=== PATIENT | male | born 1945 | race Caucasian/White ===

== ENCOUNTER 2018-12-05 11:22 | Emergency (ER) | payer MEDICARE, BC ==
[2018-12-05] MEDS ORDERED: Cyclobenzaprine 10 MG Tab PO ONE (11:54)
[2018-12-05] MEDS ORDERED: Lidocaine 5% 700 MG Patch TOP SCH (12:00)
--- NOTE | 2018-12-05 12:04 | EDM.PDOC ---
ED HPI GENERAL MEDICAL PROBLEM - General Chief Complaint: Lower Extremity Injury/Pain Stated Complaint: PULLED HAMSTRING/RT SIDE Time Seen by Provider: 12/05/18 11:45 Source of Information: Reports: Patient History Limitations: Reports: No Limitations - History of Present Illness INITIAL COMMENTS - FREE TEXT/NARRATIVE: Kishan is a 73 year old male, presents to the ED today with c/o right posterior thigh pain. Patient was water skiing, trying to get up on his skis, when he fell, unsure what he did but painful to walk or straighten his leg. Patient took Tylenol and Ibuprofen for pain with minimal relief, pain increases significantly with ambulation. Patient does not want narcotics for pain. Onset: Today, Sudden - Related Data Allergies Allergy/AdvReac Type Severity Reaction Status Date / Time No Known Allergies Allergy Verified 12/05/18 11:41 Home Meds: Home Meds Doxycycline [Vibramycin] 12/05/18 [History] Finasteride [Proscar] 12/05/18 [History] Simvastatin [Zocor] 12/05/18 [History] Past Medical History HEENT History: Reports: Cataract Cardiovascular History: Reports: High Cholesterol Genitourinary History: Reports: BPH - Past Surgical History GI Surgical History: Reports: Cholecystectomy Social & Family History - Tobacco Use Smoking Status *Q: Never Smoker Review of Systems - Review of Systems Review Of Systems: ROS reveals no pertinent complaints other than HPI. ED EXAM, GENERAL - Physical Exam Exam: See Below Exam Limited By: No Limitations General Appearance: Alert, WD/WN, Mild Distress Eye Exam: Bilateral Eye: EOMI Throat/Mouth: Normal Inspection, Normal Oropharynx Head: Atraumatic Neck: Normal Inspection, Supple, Full Range of Motion Respiratory/Chest: No Respiratory Distress Cardiovascular: Normal Peripheral Pulses, Bradycardia Peripheral Pulses: 2+: Dorsalis Pedis (L), Dorsalis Pedis (R) Extremities: Normal Inspection, Other (tenderness to posterior right thigh, small step off noted proximally, concern for partial tear, pain with extension of leg, pedal pulses intact, cap refill intact, no bony abnormality) Neurological: Alert, Oriented, CN II-XII Intact, Other (Right upper leg is tremulous) Psychiatric: Normal Affect, Normal Mood Skin Exam: Warm, Dry Lymphatic: No Adenopathy Course - Vital Signs Last Recorded V/S: Last Vital Signs Temp 34.9 C L 12/05/18 11:46 Pulse 58 L 12/05/18 11:46 Resp 12 12/05/18 11:46 BP 161/69 H 12/05/18 11:46 Pulse Ox 97 12/05/18 11:46 Kishan is a 73 year old male, presents to the ED today with c/o posterior thigh pain after trying to get up on water skis, likely partial tear based on exam findings. Patient given a dose of Flexeril here for muscle spasm, lidocaine patch applied to posterior thigh as patient requested to avoid any narcotic medication. MICHEAL wraps applied for compression, family requesting knee immobilizer to help extend leg which was provided as well as crutches with weight bearing as tolerated. Will send patient home with RX for Robaxin PRN Recommend OTC lidocaine patch as needed. Ibuprofen and Tylenol scheduled RICE Follow up with PCP when you return home for re-evaluation. May need imaging in the future such as MRI depending on severity if strain vs. partial tear. Reasons to return to the ED discussed. Patient agreeable and discharged in stable condition. - Orders/Labs/Meds Orders: Active Orders 24 hr Category Date Time Status Lidocaine 5% [Lidoderm 5%] Med 12/05/18 12:00 Active 700 mg TOP Q24H Medication Orders Lidocaine (Lidoderm 5%) 700 mg TOP Q24H PETRA Last Admin: 12/05/18 12:04 Dose: 700 mg Meds: Medications Generic Name Dose Route Start Last Admin Trade Name Freq PRN Reason Stop Dose Admin Lidocaine 700 mg 12/05/18 12:00 12/05/18 12:04 Lidoderm 5% TOP 700 mg Q24H PETRA Administration Discontinued Medications Generic Name Dose Route Start Last Admin Trade Name Freq PRN Reason Stop Dose Admin Cyclobenzaprine HCl 10 mg 12/05/18 11:54 12/05/18 12:04 Flexeril PO 12/05/18 11:55 10 mg ONETIME ONE Administration Departure - Departure Time of Disposition: 13:00 Disposition: Home, Self-Care 01 Condition: Good Clinical Impression: Partial hamstring tear Qualifiers: Encounter type: initial encounter Laterality: right Qualified Code(s): S76.311A - Strain of muscle, fascia and tendon of the posterior muscle group at thigh level, right thigh, initial encounter - Discharge Information Instructions: How to Use a Knee Immobilizer, [id number], Hamstring Strain Referrals: PCP,None [Primary Care Provider] - Forms: ED Department Discharge Additional Instructions: Kishan, I am concerned this is a partial hamstring tear. If it is just a strain or pull, it should improve in the next few days, if it is a tear it may take a few weeks to heal. Keep Micheal wraps on to help with the swelling/compression. Knee immobilizer as needed if you find this is helpful. I would recommend Ibuprofen 600 mg every 6 hours for pain/inflammation which can be alternated with Tylenol 650 mg every 4 hours as needed. Do not exceed 4, 000 mg of Tylenol (Acetaminophen) in a 24 hour period. If you found the lidocaine patches helpful, you can find the 4% patches over the counter, these are typically worn for 12 hours then off for 12 hours. Follow up with your primary care provider next week when you return home. - My Orders Last 24 Hours: My Active Orders 12/05/18 12:00 Lidocaine 5% [Lidoderm 5%] 700 mg TOP Q24H - Assessment/Plan Last 24 Hours: My Active Orders 12/05/18 12:00 Lidocaine 5% [Lidoderm 5%] 700 mg TOP Q24H
== END 2018-12-05 12:37 | disposition home or self-care (01) ==
LOC: JP.ED 11:22
DX: S76.311A Strain of muscle, fascia and tendon of the posterior muscle group at thigh level, right thigh, initial encounter (principal); V92.09XA Drowning and submersion due to fall off unspecified watercraft, initial encounter
CPT/HCPCS: 99283; A9270